=== PATIENT | female | born 1945 | race Caucasian/White ===

== ENCOUNTER → 2016-07-04 | Outpatient (CLI) | payer OTHER ==
[~2016-07-04] MED LIST: ALLOPURINOL100 MG PO; ATARAX,VISTARIL25 MG PO; ATIVAN0.5 MG PO; BIOTIN 5000MCG PO; BUDESONIDE EC3 MG PO; CENTRUM SILVER1 EAC3 PO; CHERATUSSIN AC473 ML PO; CITALOPRAM HBR10 MG PO; DIAZEPAM5 MG PO; LEVOTHYROXINE88 MCG PO; LOMOTIL TABLET1 EACH PO; LOPERAMIDE2 MG PO; MELATONIN10 M2 PO; METAMUCIL0.52 GM PO; PROAIR HFA8.5 GM IH; PROBIOTIC1 EAC1 PO; PROCHLORPERAZIN10 MG PO; PROVENTIL,2.5 MG/3 M IH; REQUIP0.25 MG PO; SPECTRAVITE SE1 EACH PO; TESSALON PERLE100 MG PO; VITAMIN D31000 UNIT PO; ZOFRAN8 MG PO
[2016-07-04 09:52] LABS: HEMATOCRIT 41.2 % (36.0-46.0); MCH 31.4 PG (29.0-34.0); MCV 92.4 FL (83-99); MEAN PLAT.VOLUME 9.2 uM^3 (9.5-12.4); PLATELET COUNT 153 K/uL (156-360); RBC DIS.WIDTH-CV 13.2 % (11.8-14.6); RBC DIS.WIDTH-SD 45.1 % (39-53); RED BLOOD COUNT 4.46 M/uL (3.80-5.20); WHITE BLOOD COUNT 3.1 K/uL (4.1-10.2)
[2016-07-04 10:05] LABS: PROTHROMBIN TIME 10.2 (9.2-11.2); PTT 24.1 (25-32)
== END | disposition home or self-care (01) ==
LOC: EDSTATUS 09:00 → OPR 09:00
PROVIDERS: Internal Medicine
PROC: 0GB33ZX Excision of Right Adrenal Gland, Percutaneous Approach, Diagnostic (ICD-10-PCS; principal; 2016-07-04)
DX: C79.71 Secondary malignant neoplasm of right adrenal gland (principal); C34.91 Malignant neoplasm of unspecified part of right bronchus or lung; Z87.891 Personal history of nicotine dependence; E78.5 Hyperlipidemia, unspecified; I10 Essential (primary) hypertension; E03.9 Hypothyroidism, unspecified
CPT/HCPCS: 77012; 85027; 85610; 85730; 88305; 88341 TC; 88342 TC; J3010

== ENCOUNTER → 2016-12-26 | Outpatient (CLI) | payer OTHER ==
[~2016-12-26] MED LIST changes: +KEFLEX500 MG PO; +LASIX40 MG PO
== END | disposition home or self-care (01) ==
LOC: EDSTATUS 14:00 → RAD 14:00
PROC: 0W993ZZ Drainage of Right Pleural Cavity, Percutaneous Approach (ICD-10-PCS; principal; 2016-12-26)
DX: C34.91 Malignant neoplasm of unspecified part of right bronchus or lung (principal)
CPT/HCPCS: 76942

== ENCOUNTER 2017-04-16 11:14 | Inpatient (IN) | payer OTHER ==
[~2017-04-16] VITALS: Ht 160 cm; Wt 55.3 kg
[~2017-04-16 11:14] MED LIST changes: -CENTRUM SILVER1 EAC3 PO; +MULTI-VITAMIN1 EAC3 PO
[2017-04-16 12:13] LABS: BASOPHIL (%) 0.3 % (0-1); EOSINOPHIL (%) 2.2 % (0-5); EOSINOPHIL COUNT 0.1 K/uL (0-0.3); HEMATOCRIT 36.7 % (36.0-46.0); HEMOGLOBIN 12.5 G/DL (11.9-15.5); IMMATURE GRANULOCYTE (%) 0.3 % (0.0-0.7); LYMPHOCYTE COUNT 0.2 K/uL (1.0-2.8); MCH 31.4 PG (29.0-34.0); MCHC 34.1 G/DL (30.0-36.0); MCV 92.2 FL (83-99); MONOCYTE (%) 10.6 % (3-12); MONOCYTE COUNT 0.3 K/uL (0-0.8); NEUTROPHIL (%) 81.6 % (45-76); NEUTROPHIL COUNT 2.6 K/uL (1.8-6.4); PLATELET COUNT 108 K/uL (156-360); RBC DIS.WIDTH-CV 16.1 % (11.8-14.6); RBC DIS.WIDTH-SD 54.4 % (39-53); RED BLOOD COUNT 3.98 M/uL (3.80-5.20); WHITE BLOOD COUNT 3.2 K/uL (4.1-10.2)
[2017-04-16 12:24] LABS: CHLORIDE 105 mEq/L (99-109); POTASSIUM 4.4 mEq/L (3.7-5.4); SODIUM 141 mEq/L (136-147)
[2017-04-16 12:27] LABS: GLUCOSE 128 mg/dL (70-99); TOTAL PROTEIN 6.8 g/dL (6.4-8.3)
[2017-04-16 12:29] LABS: TOTAL BILIRUBIN 1.5 mg/dL (0.0-1.0)
[2017-04-16 12:30] LABS: ALKALINE PHOSPHATASE 666 IU/L (3-129); CREATININE 0.8 mg/dL (0.6-1.3); GFR ESTIMATE (CALCULATED) > 59 mL/min/
[2017-04-16 12:31] LABS: UREA NITROGEN (BUN) 20 mg/dL (9-23)
[2017-04-16 12:33] LABS: ALT (GPT) 888 IU/L (3-49)
[2017-04-16 12:36] LABS: TROP-I INTERPRETATION NEGATIVE; TROPONIN-I < 0.01 ng/mL (0.0-0.30)
[2017-04-16 12:44] LABS: AST (GOT) 1071 IU/L (2-34)
[2017-04-16 12:59] LABS: APPEARANCE CLEAR ((CLEAR)); BILIRUBIN NEGATIVE; BLOOD NEGATIVE; COLOR AMBER ((YELLOW)); GLUCOSE (STRIP) NEGATIVE; KETONES NEGATIVE; LEUKOCYTES NEGATIVE; NITRITE NEGATIVE; PROTEIN (STRIP) NEGATIVE; SPECIFIC GRAVITY 1.024 (1.000-1.030); UCUL ADDED? NO
[2017-04-16 14:17] LABS: LIPASE 195 U/L (1.0-51.0)
[2017-04-16] MEDS ORDERED: DRONABINOL2.5 MG PO (16:54)
[2017-04-16] MEDS ORDERED: BENZONATATE100 MG PO (16:54)
[2017-04-16 21:20] VITALS: BP 167/78
[2017-04-16 23:32] VITALS: BP 150/83
[2017-04-17 07:37] VITALS: BP 171/90
== END 2017-04-17 18:30 | disposition hospice, home (50) | DRG 640 ==
LOC: EME 11:14 → EDOF 19:00 → 5EAST 19:00 → ENRESERV 19:37 → 5EAST 20:43
PROVIDERS: Emergency Medicine Emergency Medical Services
DX: E86.0 Dehydration (principal); E87.1 Hypo-osmolality and hyponatremia; K26.5 Chronic or unspecified duodenal ulcer with perforation; C78.89 Secondary malignant neoplasm of other digestive organs; C78.7 Secondary malignant neoplasm of liver and intrahepatic bile duct; C79.31 Secondary malignant neoplasm of brain; C79.70 Secondary malignant neoplasm of unspecified adrenal gland; C34.90 Malignant neoplasm of unspecified part of unspecified bronchus or lung; E03.9 Hypothyroidism, unspecified; G25.81 Restless legs syndrome; F51.04 Psychophysiologic insomnia; R64 Cachexia; Z68.21 Body mass index [BMI] 21.0-21.9, adult; Z66 Do not resuscitate; Z87.891 Personal history of nicotine dependence
CPT/HCPCS: 70450; 71045; 74177; 80053; 81003; 83605; 83690; 83880; 84484; 85025; 87040; 93005; 99281; 99285; J0696; J7040; J7120; Q0167; Q0177